=== PATIENT | male | born 1990 | race African-American/Black ===

== ENCOUNTER 2016-07-12 03:24 | Emergency (ER) | payer OTHER ==
[2016-07-12] MEDS ORDERED: PERCOCET 5MG/325MG TAB As Ordered ONE (03:49)
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
== END 2016-07-12 05:25 | disposition home or self-care (01) ==
LOC: M ED 03:24
DX: S06.0X9A Concussion with loss of consciousness of unspecified duration, initial encounter (principal); S00.81XA Abrasion of other part of head, initial encounter; V48.5XXA Car driver injured in noncollision transport accident in traffic accident, initial encounter; Y92.410 Unspecified street and highway as the place of occurrence of the external cause; Y93.89 Activity, other specified; Y99.8 Other external cause status

== ENCOUNTER 2017-06-17 06:25 | Emergency (ER) | payer OTHER | END 2017-06-17 07:46 | disposition home or self-care (01) | LOC: M ED 06:25 | DX: K12.2 Cellulitis and abscess of mouth (principal) | CPT/HCPCS: 87880 ==